=== PATIENT | male | born 1960 | race Caucasian/White ===

== ENCOUNTER → 2016-09-25 | Outpatient (CLI) | payer BC ==
[~2016-09-25] MED LIST: Gadobutrol 10 mMOL/10 ML SDV IVPUSH STA
--- NOTE | 2016-09-28 10:23 | MR ---
EXAMINATION: MRI cervical spine with and without contrast HISTORY: Pain COMPARISON: Radiographs dated 06/08/2016 TECHNIQUE: Multiplanar and multisequence images obtained through the cervical spine before and follo wing the administration of 8 mL of Gadavist. FINDINGS: The cervical spinal alignment is normal. The vertebral body heights appear well maintained . The visualized intracranial components appear normal. No abnormal cervical cord signal. No abnorm al enhancement or bone marrow signal. The paravertebral soft tissues appear normal. C2-C3: Unremarkable. C3-C4: Small diffuse disc bulge with minimal underlying spinal canal stenosis. Mild bilateral neural foraminal stenosis accentuated by uncovertebral hypertrophy. C4-C5: Grossly unremarkable. C5-C6: Unremarkable. C6-C7: Moderate diffuse disc bulge with mild spinal canal stenosis. Minimal bilateral neural foramin al stenosis. C7-T1: Unremarkable. IMPRESSION: 1. Mild multilevel degenerative changes within the cervical spine with individual details above.
== END ==
LOC: MW.MRI 14:15
PROVIDERS: ATTEND Internal Medicine
DX: M54.2 Cervicalgia (principal); M47.812 Spondylosis without myelopathy or radiculopathy, cervical region
CPT/HCPCS: 72156; A9585